=== PATIENT | male | born 1950 | race Caucasian/White ===

== ENCOUNTER → 2017-04-08 | Outpatient (CLI) | payer MEDICARE, OTHER ==
[~2017-04-08] MED LIST: ACET500; ASPI81CH PO; ASPI81EC; ATOR20; ATOR80 PO; AZOR; Azor 10-40 MG1 EACH; Azor 5-40 MG T1 EACH PO; CLON.5; CLOP75 PO; DOCU100 PO; FERR325; HYDCHL25; IRON 325 MG; KETO10 PO; LISI10; LISI20; LORA2 PO; Levitra20 MG; MAGCHL64ER; MECL25 PO; METCAR500 PO; METO100ER; METO25ER; NEBI5 PO; Nitrostat0.4 MG; OMEP20ER PO; OXYACE5T PO; PROM25 PO; Percocet 5-3251 EACH PO; RXLORA1 PO; TEMA15 PO; VITAMIN B122500 MCG PO
== END ==
LOC: PLD 08:06 → LAB SHORT 08:06
DX: D48.5 Neoplasm of uncertain behavior of skin (principal)
CPT/HCPCS: 88305

== ENCOUNTER → 2017-08-18 | Outpatient (CLI) | payer MEDICARE, OTHER ==
[2017-08-18 14:16] LABS: BASOPHILS ABSOLUTE AUTO 0.04 K/mm3 (0.00-0.23); BASOPHILS PERCENT AUTO 1 % (0-2); EOSINOPHILS PERCENT AUTO 3 % (0-6); Hemoglobin 14.5 g/dL (13.5-17.5); IMMATURE GRAN ABSOLUTE AUTO 0.02 K/mm3 (0.00-0.10); IMMATURE GRAN PERCENT AUTO 0 % (0-1); LYMPHOCYTES ABSOLUTE AUTO 1.77 K/mm3 (0.84-5.20); LYMPHOCYTES PERCENT AUTO 23 % (21-46); MONOCYTES ABSOLUTE AUTO 0.67 K/mm3 (0.16-1.47); MONOCYTES PERCENT AUTO 9 % (4-13); Mean Corpuscular HGB Conc 32.2 g/dL (31.5-36.5); Mean Corpuscular Volume 90 fL (80-100); Mean Platelet Volume 10.5 fL (9.1-12.4); NEUTROPHILS ABSOLUTE AUTO 5.13 K/mm3 (1.96-9.15); NEUTROPHILS PERCENT AUTO 65 % (41-73); Platelet Count 295 K/mm3 (150-400); RDW Standard Deviation 46.3 fL (35.1-46.3); White Blood Cell Count 7.83 K/mm3 (4.00-11.30)
[2017-08-18 14:31] LABS: Alanine Aminotransfer (ALT/SGP 57 U/L (12-78); Albumin, Blood 3.6 g/dL (3.4-5.0); Alk Phos 88 U/L (50-136); Anion Gap 8 mmol/L (6-16); Aspartate Aminotrans (AST/SGOT 34 U/L (12-37); Bilirubin, Total 0.3 mg/dL (0.1-1.0); Blood Urea Nitrogen 18 mg/dL (8-24); Bun/Creatinine Ratio 16.8 (12.0-20.0); CO2, Blood 24 mmol/L (21-32); Calcium, Blood 8.6 mg/dL (8.5-10.1); Chloride, Blood 107 mmol/L (98-108); Creatinine, Blood 1.07 mg/dL (0.60-1.20); Globulin, Blood 3.6 g/dL (2.2-4.0); Glomerular Filtration Rate >60 (60-); Glucose, Blood 116 mg/dL (70-99); Potassium, Blood 4.3 mmol/L (3.5-5.5); Sodium, Blood 139 mmol/L (136-145); Total Protein, Blood 7.2 g/dL (6.4-8.2)
== END | disposition home or self-care (01) ==
LOC: LAB SHORT 14:04 → LAB 14:04
PROVIDERS: Emergency Medicine
DX: R22.43 Localized swelling, mass and lump, lower limb, bilateral (principal)
CPT/HCPCS: 80053; 85025

== ENCOUNTER → 2018-03-08 | Outpatient (CLI) | payer MEDICARE, OTHER ==
[2018-03-08 13:35] LABS: BASOPHILS ABSOLUTE AUTO 0.05 K/mm3 (0.00-0.23); BASOPHILS PERCENT AUTO 1 % (0-2); EOSINOPHILS ABSOLUTE AUTO 0.31 K/mm3 (0.00-0.68); EOSINOPHILS PERCENT AUTO 4 % (0-6); Hematocrit 30.6 % (37.0-53.0); Hemoglobin 9.1 g/dL (13.5-17.5); IMMATURE GRAN ABSOLUTE AUTO 0.04 K/mm3 (0.00-0.10); IMMATURE GRAN PERCENT AUTO 1 % (0-1); LYMPHOCYTES ABSOLUTE AUTO 1.47 K/mm3 (0.84-5.20); LYMPHOCYTES PERCENT AUTO 17 % (21-46); MONOCYTES ABSOLUTE AUTO 0.63 K/mm3 (0.16-1.47); MONOCYTES PERCENT AUTO 7 % (4-13); Mean Corpuscular HGB 26.1 pg (26.0-34.0); Mean Corpuscular HGB Conc 29.7 g/dL (31.5-36.5); Mean Corpuscular Volume 88 fL (80-100); Mean Platelet Volume 10.7 fL (9.1-12.4); NEUTROPHILS ABSOLUTE AUTO 5.96 K/mm3 (1.96-9.15); NEUTROPHILS PERCENT AUTO 70 % (41-73); Platelet Count 373 K/mm3 (150-400); RDW Coefficient Variation 14.9 % (11.7-14.2); RDW Standard Deviation 47.6 fL (35.1-46.3); Red Blood Cell Count 3.49 M/mm3 (4.30-5.90); White Blood Cell Count 8.46 K/mm3 (4.00-11.30)
[2018-03-08 13:50] LABS: Alanine Aminotransfer (ALT/SGP 26 U/L (12-78); Albumin, Blood 3.5 g/dL (3.4-5.0); Alk Phos 79 U/L (50-136); Anion Gap 7 mmol/L (6-16); Aspartate Aminotrans (AST/SGOT 15 U/L (12-37); Bilirubin, Total 0.2 mg/dL (0.1-1.0); Blood Urea Nitrogen 15 mg/dL (8-24); Bun/Creatinine Ratio 14.4 (12.0-20.0); CO2, Blood 24 mmol/L (21-32); Calcium, Blood 8.5 mg/dL (8.5-10.1); Chloride, Blood 107 mmol/L (98-108); Creatinine, Blood 1.04 mg/dL (0.60-1.20); Globulin, Blood 3.4 g/dL (2.2-4.0); Glomerular Filtration Rate >60 (60-); Glucose, Blood 117 mg/dL (70-99); Sodium, Blood 138 mmol/L (136-145); Total Protein, Blood 6.9 g/dL (6.4-8.2)
== END ==
LOC: LAB 13:02 → LAB SHORT 13:02
PROVIDERS: Family Medicine
DX: R53.83 Other fatigue (principal); R05 Cough
CPT/HCPCS: 36415; 80053; 84443; 85025; 85651

== ENCOUNTER → 2018-09-20 | Outpatient (CLI) | payer MEDICARE, OTHER ==
[~2018-09-20] MED LIST changes: +Aspirin EC81 MG PO; +B Complex #11 EACH PO; +IRON PO; +Lipitor80 MG PO; +MAGNESIUM PO; +NITR.4SL SL; +OLME20 PO; +Pantoprazole So20 MG PO; +Plavix75 MG PO; +SILD50TA PO; +VITAMIN B-121000 MC2 PO
[2018-09-20 12:59] LABS: Stool Occult Bld Immuno 1 Negative (NEGATIVE); Stool Occult Bld Immuno 2 Negative (NEGATIVE)
== END | disposition home or self-care (01) ==
LOC: LAB SHORT 07:15 → LAB 07:15 → LAB FUT 09-17 13:55 → EDSTATUS 09-17 13:55
PROVIDERS: Internal Medicine Gastroenterology
DX: D50.9 Iron deficiency anemia, unspecified (principal); K62.5 Hemorrhage of anus and rectum
CPT/HCPCS: 82274

== ENCOUNTER 2018-10-06 07:36 | Day surgery (SDC) | payer MEDICARE, OTHER ==
[~2018-10-06] VITALS: Ht 180.3 cm; Wt 110.9 kg
[~2018-10-06 07:36] MED LIST changes: -Aspirin EC81 MG PO; -IRON PO; -Lipitor80 MG PO; -MAGNESIUM PO; -NITR.4SL SL; -OLME20 PO; -Pantoprazole So20 MG PO; -Plavix75 MG PO; -SILD50TA PO; -VITAMIN B-121000 MC2 PO
--- NOTE | 2018-10-06 08:47 | NUR ---
10/06/18 0847 Stephanie Boogie 1 MISSEDIV IN RH BY DION VALVE 1 MISSED IV IN RW BY DION 1VALVE 1 MISSED IV IN RAC BY RN VALVE 1 MISSED IV IN LH BY MAIN VALVE 1 GOOD IV IN LH BY DION PT TOW
== END 2018-10-06 09:56 | disposition home or self-care (01) ==
LOC: ORSCSDS 07:36
PROVIDERS: Internal Medicine Gastroenterology
PROC: 0DBN8ZX Excision of Sigmoid Colon, Via Natural or Artificial Opening Endoscopic, Diagnostic (ICD-10-PCS; principal; 2018-10-06 09:00)
PROC: 0DBM8ZX Excision of Descending Colon, Via Natural or Artificial Opening Endoscopic, Diagnostic (ICD-10-PCS; principal; 2018-10-06 09:00)
PROC: 0DBK8ZX Excision of Ascending Colon, Via Natural or Artificial Opening Endoscopic, Diagnostic (ICD-10-PCS; principal; 2018-10-06 09:00)
DX: Z12.11 Encounter for screening for malignant neoplasm of colon (principal); Z86.010 Personal history of colon polyps; D12.2 Benign neoplasm of ascending colon; D12.4 Benign neoplasm of descending colon; D12.5 Benign neoplasm of sigmoid colon; K57.30 Diverticulosis of large intestine without perforation or abscess without bleeding; D50.9 Iron deficiency anemia, unspecified; Z83.71 Family history of colonic polyps; K64.8 Other hemorrhoids; E66.9 Obesity, unspecified; Z68.34 Body mass index [BMI] 34.0-34.9, adult; K21.9 Gastro-esophageal reflux disease without esophagitis; Z79.01 Long term (current) use of anticoagulants; Z79.82 Long term (current) use of aspirin; Z79.899 Other long term (current) drug therapy
CPT/HCPCS: 88305; J0330; J0461; J1980; J2405; J2704; J7120

== ENCOUNTER 2018-12-10 15:28 | Observation (INO) | payer MEDICARE, OTHER ==
[~2018-12-10] VITALS: Ht 180.3 cm; Wt 111.8 kg
[2018-12-10 16:43] LABS: BASOPHILS ABSOLUTE AUTO 0.06 K/mm3 (0.00-0.23); BASOPHILS PERCENT AUTO 1 % (0-2); EOSINOPHILS ABSOLUTE AUTO 0.14 K/mm3 (0.00-0.68); EOSINOPHILS PERCENT AUTO 2 % (0-6); Hematocrit 36.9 % (37.0-53.0); Hemoglobin 11.1 g/dL (13.5-17.5); IMMATURE GRAN ABSOLUTE AUTO 0.03 K/mm3 (0.00-0.10); IMMATURE GRAN PERCENT AUTO 0 % (0-1); LYMPHOCYTES ABSOLUTE AUTO 1.65 K/mm3 (0.84-5.20); LYMPHOCYTES PERCENT AUTO 18 % (21-46); MONOCYTES ABSOLUTE AUTO 0.84 K/mm3 (0.16-1.47); MONOCYTES PERCENT AUTO 9 % (4-13); Mean Corpuscular HGB 26.6 pg (26.0-34.0); Mean Corpuscular HGB Conc 30.1 g/dL (31.5-36.5); Mean Corpuscular Volume 88 fL (80-100); NEUTROPHILS ABSOLUTE AUTO 6.37 K/mm3 (1.96-9.15); NEUTROPHILS PERCENT AUTO 70 % (41-73); RDW Coefficient Variation 14.4 % (11.7-14.2); RDW Standard Deviation 45.9 fL (35.1-46.3); Red Blood Cell Count 4.18 M/mm3 (4.30-5.90); White Blood Cell Count 9.09 K/mm3 (4.00-11.30)
[2018-12-10 17:11] LABS: Mean Platelet Volume 10.3 fL (9.1-12.4); Platelet Count 303 K/mm3 (150-400)
[2018-12-10] MEDS ORDERED: Lipitor80 MG PO (17:23)
[2018-12-10] MEDS ORDERED: NITR.4SL SL (17:23)
[2018-12-10] MEDS ORDERED: Aspirin EC81 MG PO (17:23)
[2018-12-10] MEDS ORDERED: Pantoprazole So20 MG PO (17:23)
[2018-12-10] MEDS ORDERED: OLME20 PO (17:24)
[2018-12-10] MEDS ORDERED: Plavix75 MG PO (17:24)
[2018-12-10] MEDS ORDERED: SILD50TA PO (17:25)
[2018-12-10 17:46] LABS: Alanine Aminotransfer (ALT/SGP 41 U/L (12-78); Albumin, Blood 3.5 g/dL (3.4-5.0); Albumin/Globulin Ratio 1.1 (0.8-1.8); Alk Phos 80 U/L (50-136); Anion Gap 3 mmol/L (6-16); Aspartate Aminotrans (AST/SGOT 23 U/L (12-37); Bilirubin, Total 0.2 mg/dL (0.1-1.0); Blood Urea Nitrogen 20 mg/dL (8-24); Bun/Creatinine Ratio 20.6 (12.0-20.0); CO2, Blood 24 mmol/L (21-32); Calcium, Blood 8.4 mg/dL (8.5-10.1); Chloride, Blood 109 mmol/L (98-108); Creatinine, Blood 0.97 mg/dL (0.60-1.20); Globulin, Blood 3.3 g/dL (2.2-4.0); Glomerular Filtration Rate >60 (60-); Glucose, Blood 99 mg/dL (70-99); International Normalized Ratio 1.02; Potassium, Blood 4.1 mmol/L (3.5-5.5); Prothrombin Time Results 10.8 Sec (9.7-11.5); Sodium, Blood 136 mmol/L (136-145); Total Protein, Blood 6.8 g/dL (6.4-8.2); Troponin I <0.015 ng/mL (0.000-0.040)
[2018-12-10] MEDS ORDERED: MAGNESIUM PO (18:34)
[2018-12-10] MEDS ORDERED: IRON PO (18:34)
[2018-12-10] MEDS ORDERED: VITAMIN B-121000 MC2 PO (18:35)
--- NOTE | 2018-12-11 06:40 | NUR ---
SHIFT SUMMARY RECEIVED REPORT FROM PAOLA QUACH, ED. ARRIVED TO MEDICAL FLOOR @ 1926. FAMILY AT BEDSIDE. A/O, ABLE TO MAKE NEEDS KNOWN. COOPERATIVE WITH CARE. ANSWERS QUESTIONS APPROPRIATELY. NO C/O PAIN/DISCOMFORT T/O SHIFT. NPO @ 0000. INDPENDENT IN ROOM. APPEARED TO REST MUCH OF SHIFT. VSS/AFEBRILE. NO ACUTE CHANGES NOTED OVERNIGHT. BED IN LOWEST POSITION. CALL LIGHT AND BELONGINGS WITHIN REACH. WCTM. REPORT TO WILMAN QUACH.
--- NOTE | 2018-12-11 08:20 | NUR ---
PT AWAKE DURING SHIFT REPORT. 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 PT REQUESTED TO KNOW WHEN THEY WOULD BE COMING TO GET HIM. [facility] NOTIFIED, BUT PT NOT ON SCHEDULE THEY HAVE. CARDIOLOGY CONSULT CALLED TO AKI FERNANDEZ BY [facility]. ANS REPORTED BOTH DR COHEN AND DR FERNANDEZ DOMESTIC TECHNICIAN TODAY. PT REPORTED THAT DR COHEN HAD DONE PREVIOUS STENTS AND WAS TOLD BY DR BURRELL YESTERDAY, THAT DR COHEN WOULD BE DOMESTIC TECHNICIAN TODAY. DISCUSSED WITH CHRG RN, LIANG AND NRS PRIVATE BRANCH EXCHANGE SERVICE ADVISOR KEYA. PT UPDATED. NO C/O CP. INDEPENDENT IN . FAMILY AT BS. CALL LT IN REACH.
--- NOTE | 2018-12-11 12:08 | NUR ---
0986 DR COHEN TO TO SEE PT, FAMILY AT BS. 1035 STAFF FROM [facility] HERE TO TAKE PT TO [facility]. 1205 [facility] REPORTED PT NOW GOING TO PCU.
--- NOTE | 2018-12-11 13:22 | NUR ---
ARRIVED FROM SURGERY WITH NS RUNNING INTO IV IN L ARM, REPLACED WITH ORDERED NS 500ML @ 200, STARTED ASSESSING VS PER PROTOCOL, TOLERATING WELL, CONTINUING TO MONITOR WRIST BAND, IV IRRATATING WHEN FLUSHED BUT STATES HE WOULD RATHER USE IT THEN GET A NEW ONE, CONTINUING TO MONITOR AND TREAT PRESCRIBED
--- NOTE | 2018-12-11 14:22 | NUR ---
Pt's IV is starting to infiltrate apparently. He is c/o tenderness and the insertion site has an area which is starting to be firm to palpation. IV fluids were turned off (pt has received 300 cc of 500cc ordered), and he was encouraged to drink the water in his pitcher. STates he has no problem doing that.
--- NOTE | 2018-12-11 15:49 | NUR ---
Total of 9 cc air removed from TR band. Appears to be totally deflated. Scant amount of dried blood noted around the insertion site, but no bleeding, no bruising, no swelling, no hematoma. Pt denies any numbness, tingling, or pain in his arm since arrival. Cap refill has remained 3 sec or less, with good spo2 measured on the 2nd digit of the right hand.
--- NOTE | 2018-12-11 19:10 | NUR ---
BROKE THE NEWS THAT HE WOULD LIKELY HAVE TO SPEND THE NIGHT, CALL LIGHT IN REACH, NO BLEEDING OR INFLAMATION NOTED AT SURGICAL SITE, SALINE LOCKED, ROOM AIR, IN ROOM ASSISTING WITH CARE, BSR SHARED WITH DAY SHIFT STAFF, COOPERATIVE WITH STAFF, HEART NSR, 67p, ABLE TO SELF TRANSFER TO TOILET FOR FREQUENT URINATION
--- NOTE | 2018-12-12 04:12 | NUR ---
ASSUMED CARE APPROXIMATELY 1900; PT A&O; SPOUSE AT BEDSIDE; PT ANXIOUS TO BE DISCHARGED; R WRIST ANGIO SITE, SMALL DRIED BLOOD; CAP REFILL <3 SEC; O2 SATS >90 ON SECOND DIGIT R HAND; R ARM BOARD IN PLACE; PT DENIES CHEST PAIN; NO APPARENT DISTRESS; TENDERNESS NOTED W/ FLUSHING LEFT ARM IV SITE, FLUSHES EASILY; PT REQUESTED DOOR CLOSED AND QUIET CARE THROUGH THE NIGHT; SPOUSE STAYED IN ROOM AND RECLINER CHAIR AND BLANKETS PROVIDED; PT INDEPENDENT TO BATHROOM; PT ASLEEP SEVERAL HOURS; BED IN LOWEST POSITION; CALL LIGHT IN REACH; WILL CONTINUE TO MONITOR AND ASSESS UNTIL HAND OFF TO DAY SHIFT RN.
--- NOTE | 2018-12-12 09:21 | NUR ---
DISCHARGE HOME DR MANZANO AND DR FERNANDEZ AGREED TO DISCHARGE. DISCHARGE ORDERS RECEIVED. REVIEWED THE DISCHARGE RADIAL ACCESS INSTRUCTIONS. INCLUDING S/S OF INFECTION. REVIEWED NITROGLYCERIN AND VIAGARA PRECAUTIONS. CONTINUE POT.
== END 2018-12-12 09:14 | disposition home or self-care (01) ==
LOC: ER 15:28 → MEDS 15:29 → PCU 12-11 12:09
PROVIDERS: Emergency Medicine; Physician Assistant; ADMIT Hospitalist
DX: I25.10 Atherosclerotic heart disease of native coronary artery without angina pectoris (principal); I10 Essential (primary) hypertension; K21.9 Gastro-esophageal reflux disease without esophagitis; R73.03 Prediabetes; Z95.5 Presence of coronary angioplasty implant and graft; Z79.899 Other long term (current) drug therapy; Z79.82 Long term (current) use of aspirin; Z79.02 Long term (current) use of antithrombotics/antiplatelets
CPT/HCPCS: 36415; 71046; 80053; 83036; 84484; 85025; 85610; 85730; 93005; 93010; 93458; 96372; 99152; 99285-25; C1769; C1894; C9113; G0378; J1644; J1650; J2250; J3010; J7030; J7040; Q9967

== ENCOUNTER 2019-04-18 16:25 | Emergency (ER) | payer MEDICARE, OTHER ==
[~2019-04-18] VITALS: Ht 180.3 cm; Wt 113.2 kg
[~2019-04-18 16:25] MED LIST changes: +Aspirin EC81 MG PO; +IRON PO; +Lipitor80 MG PO; +MAGNESIUM PO; +NITR.4SL SL; +OLME20 PO; +Pantoprazole So20 MG PO; +Plavix75 MG PO; +SILD50TA PO; +VITAMIN B-121000 MC2 PO
[2019-04-18 18:04] LABS: BASOPHILS ABSOLUTE AUTO 0.03 K/mm3 (0.00-0.23); BASOPHILS PERCENT AUTO 0 % (0-2); EOSINOPHILS ABSOLUTE AUTO 0.15 K/mm3 (0.00-0.68); EOSINOPHILS PERCENT AUTO 2 % (0-6); Hematocrit 34.7 % (37.0-53.0); Hemoglobin 10.7 g/dL (13.5-17.5); IMMATURE GRAN ABSOLUTE AUTO 0.03 K/mm3 (0.00-0.10); IMMATURE GRAN PERCENT AUTO 0 % (0-1); LYMPHOCYTES PERCENT AUTO 18 % (21-46); MONOCYTES ABSOLUTE AUTO 0.52 K/mm3 (0.16-1.47); MONOCYTES PERCENT AUTO 7 % (4-13); Mean Corpuscular HGB Conc 30.8 g/dL (31.5-36.5); Mean Corpuscular Volume 91 fL (80-100); Mean Platelet Volume 10.6 fL (9.1-12.4); NEUTROPHILS ABSOLUTE AUTO 5.25 K/mm3 (1.96-9.15); NEUTROPHILS PERCENT AUTO 72 % (41-73); Platelet Count 322 K/mm3 (150-400); RDW Coefficient Variation 15.8 % (11.7-14.2); RDW Standard Deviation 52.1 fL (35.1-46.3); Red Blood Cell Count 3.82 M/mm3 (4.30-5.90); White Blood Cell Count 7.28 K/mm3 (4.00-11.30)
[2019-04-18 18:35] LABS: Alanine Aminotransfer (ALT/SGP 40 U/L (12-78); Albumin, Blood 3.1 g/dL (3.4-5.0); Alk Phos 79 U/L (50-136); Anion Gap 2 mmol/L (6-16); Aspartate Aminotrans (AST/SGOT 29 U/L (12-37); Bilirubin, Total 0.2 mg/dL (0.1-1.0); Blood Urea Nitrogen 21 mg/dL (8-24); Bun/Creatinine Ratio 18.3 (12.0-20.0); CO2, Blood 31 mmol/L (21-32); Calcium, Blood 7.7 mg/dL (8.5-10.1); Chloride, Blood 110 mmol/L (98-108); Creatinine, Blood 1.15 mg/dL (0.60-1.20); Glomerular Filtration Rate >60 (60-); Glucose, Blood 177 mg/dL (70-99); Potassium, Blood 3.9 mmol/L (3.5-5.5); Sodium, Blood 143 mmol/L (136-145); Total Protein, Blood 6.1 g/dL (6.4-8.2); Troponin I <0.015 ng/mL (0.000-0.040)
== END 2019-04-18 19:22 | disposition home or self-care (01) ==
LOC: ER 16:25
PROVIDERS: Physician Assistant
DX: I48.91 Unspecified atrial fibrillation (principal); I10 Essential (primary) hypertension; I25.10 Atherosclerotic heart disease of native coronary artery without angina pectoris; K21.9 Gastro-esophageal reflux disease without esophagitis; I25.2 Old myocardial infarction; Z79.82 Long term (current) use of aspirin; Z79.899 Other long term (current) drug therapy
CPT/HCPCS: 36415; 71046; 80053; 83735; 83880; 84484; 85025; 93005; 93010; 99285-25

== ENCOUNTER 2020-03-16 15:24 | Emergency (ER) | payer MEDICARE ==
[~2020-03-16] VITALS: Ht 180.3 cm; Wt 113.4 kg
[2020-03-16] MEDS ORDERED: ELIQUIS5 MG PO (15:32)
== END 2020-03-16 16:37 | disposition home or self-care (01) ==
LOC: ER 15:24
DX: R07.81 Pleurodynia (principal); I10 Essential (primary) hypertension; I25.10 Atherosclerotic heart disease of native coronary artery without angina pectoris; I25.2 Old myocardial infarction; K21.9 Gastro-esophageal reflux disease without esophagitis; Z79.899 Other long term (current) drug therapy; Z79.01 Long term (current) use of anticoagulants; Z79.82 Long term (current) use of aspirin; Z95.5 Presence of coronary angioplasty implant and graft
CPT/HCPCS: 71101; 99283-25

== ENCOUNTER 2020-07-11 15:42 | Emergency (ER) | payer MEDICARE, OTHER ==
[~2020-07-11] VITALS: Ht 177.8 cm; Wt 113.4 kg
[~2020-07-11 15:42] MED LIST changes: +ELIQUIS5 MG PO
[2020-07-11 16:33] LABS: BASOPHILS ABSOLUTE AUTO 0.06 K/mm3 (0.00-0.23); BASOPHILS PERCENT AUTO 1 % (0-2); EOSINOPHILS ABSOLUTE AUTO 0.18 K/mm3 (0.00-0.68); EOSINOPHILS PERCENT AUTO 2 % (0-6); Hematocrit 28.5 % (37.0-53.0); Hemoglobin 8.6 g/dL (13.5-17.5); IMMATURE GRAN ABSOLUTE AUTO 0.05 K/mm3 (0.00-0.10); IMMATURE GRAN PERCENT AUTO 1 % (0-1); LYMPHOCYTES ABSOLUTE AUTO 1.67 K/mm3 (0.84-5.20); LYMPHOCYTES PERCENT AUTO 17 % (21-46); MONOCYTES ABSOLUTE AUTO 0.96 K/mm3 (0.16-1.47); MONOCYTES PERCENT AUTO 10 % (4-13); Mean Corpuscular HGB 24.6 pg (26.0-34.0); Mean Corpuscular HGB Conc 30.2 g/dL (31.5-36.5); Mean Corpuscular Volume 82 fL (80-100); Mean Platelet Volume 10.6 fL (9.1-12.4); NEUTROPHILS ABSOLUTE AUTO 7.21 K/mm3 (1.96-9.15); NEUTROPHILS PERCENT AUTO 71 % (41-73); NRBC ABSOLUTE 0.03 K/mm3 (0.00-0.02); NRBC Auto 0.3 /100 WBC (0.0-0.2); Platelet Count 371 K/mm3 (150-400); RDW Coefficient Variation 16.1 % (11.7-14.2); RDW Standard Deviation 46.6 fL (35.1-46.3); RETICULOCYTE ABSOLUTE 0.1277 M/mm3 (0.0200-0.1100); RETICULOCYTE COUNT PERCENT 3.66 % (0.50-2.50); Red Blood Cell Count 3.49 M/mm3 (4.30-5.90); White Blood Cell Count 10.13 K/mm3 (4.00-11.30)
[2020-07-11 16:52] LABS: Albumin, Blood 3.3 g/dL (3.4-5.0); Albumin/Globulin Ratio 0.9 (0.8-1.8); Bilirubin, Total 0.3 mg/dL (0.1-1.0); Bun/Creatinine Ratio 20.3 (12.0-20.0); Calcium, Blood 8.2 mg/dL (8.5-10.1); Creatinine, Blood 1.28 mg/dL (0.60-1.20); Globulin, Blood 3.5 g/dL (2.2-4.0); Potassium, Blood 5.5 mmol/L (3.5-5.5); Total Protein, Blood 6.8 g/dL (6.4-8.2)
== END 2020-07-11 20:56 | disposition home or self-care (01) ==
LOC: ER 15:42
PROVIDERS: Physician Assistant
DX: K62.5 Hemorrhage of anus and rectum (principal); D64.9 Anemia, unspecified; Z79.01 Long term (current) use of anticoagulants; Z79.82 Long term (current) use of aspirin; Z79.899 Other long term (current) drug therapy
CPT/HCPCS: 36415; 80053; 85025; 85045; 86850; 86900; 86901; 99283

== ENCOUNTER → 2021-10-16 | Outpatient (CLI) | payer MEDICARE, OTHER | END | disposition home or self-care (01) | LOC: LAB SHORT 11:08 → PLD 11:08 | DX: D48.5 Neoplasm of uncertain behavior of skin (principal) | CPT/HCPCS: 88305 ==

== ENCOUNTER 2022-01-15 13:59 | Day surgery (SDC) | payer MEDICARE, OTHER ==
[~2022-01-15] VITALS: Ht 180.3 cm; Wt 110.6 kg
[2022-01-15] MEDS ORDERED: NEBI10 (14:26)
== END 2022-01-15 16:36 | disposition home or self-care (01) ==
LOC: ORSCSDS 13:59
PROVIDERS: Internal Medicine Gastroenterology
PROC: 0DBM8ZX Excision of Descending Colon, Via Natural or Artificial Opening Endoscopic, Diagnostic (ICD-10-PCS; principal; 2022-01-15 15:15)
PROC: 0DBH8ZX Excision of Cecum, Via Natural or Artificial Opening Endoscopic, Diagnostic (ICD-10-PCS; principal; 2022-01-15 15:15)
DX: K62.5 Hemorrhage of anus and rectum (principal); D12.0 Benign neoplasm of cecum; K64.8 Other hemorrhoids; K57.30 Diverticulosis of large intestine without perforation or abscess without bleeding; Z86.010 Personal history of colon polyps; I25.10 Atherosclerotic heart disease of native coronary artery without angina pectoris; Z79.01 Long term (current) use of anticoagulants; Z79.51 Long term (current) use of inhaled steroids; Z79.899 Other long term (current) drug therapy
CPT/HCPCS: 82947; 88305; J0330; J0461; J2405; J2704; J7120

== ENCOUNTER 2022-06-12 13:06 | Inpatient (IN) | payer MEDICARE, OTHER ==
[~2022-06-12] VITALS: Ht 180.3 cm; Wt 111.8 kg
[~2022-06-12 13:06] MED LIST changes: -AMLO10 PO; -B-12500 MC2 PO; -FURO20 PO; -METF500 PO; -POTCHL20ER PO; -XARELTO20 MG PO
[2022-06-12 14:21] LABS: Albumin, Blood 2.8 g/dL (3.4-5.0); Albumin/Globulin Ratio 0.7 (0.8-1.8); Bilirubin, Total 0.6 mg/dL (0.1-1.0); Bun/Creatinine Ratio 27.7 (12.0-20.0); Calcium, Blood 7.9 mg/dL (8.5-10.1); Creatinine, Blood 1.48 mg/dL (0.60-1.20); Globulin, Blood 4.2 g/dL (2.2-4.0)
[2022-06-12 14:24] LABS: Source, Urine Clean Catch
[2022-06-12 14:42] LABS: Blood, Urine Neg (Neg); Color, Urine Yellow (P-Yellow); Glucose Qualitative, Urine Neg (Neg); Ketones, Urine Neg (Neg); Leukocyte Esterase, Urine Neg (Neg); Nitrite, Urine Neg (Neg); Protein, Urine 3+ (Neg); Urobilinogen, Urine NORM (Normal)
[2022-06-12 15:45] LABS: Bilirubin, Urine 1+ (Neg)
[2022-06-12 15:47] LABS: Amorphous Light (0-Heavy); Appearance, Urine Hazy (Clear); Hyaline Casts 0-2 /lpf (0-2); Mucus Mod (0-Heavy)
[2022-06-12 15:48] LABS: Bacteria Mod /hpf; Red Blood Cells, Urine 0-2 /hpf (0-2); Squamous Epithelial Cells Rare /hpf (Few); White Blood Cells, Urine 0-2 /hpf (0-5)
[2022-06-12 18:30] LABS: Hematocrit 46.1 % (37.0-53.0); Hemoglobin 15.5 g/dL (13.5-17.5); Mean Corpuscular HGB 29.4 pg (26.0-34.0); Mean Corpuscular HGB Conc 33.6 g/dL (31.5-36.5); Mean Corpuscular Volume 88 fL (80-100); Mean Platelet Volume 10.7 fL (9.1-12.4); Platelet Count 268 K/mm3 (150-400); RDW Coefficient Variation 14.5 % (11.7-14.2); RDW Standard Deviation 46.5 fL (35.1-46.3); Red Blood Cell Count 5.27 M/mm3 (4.30-5.90); White Blood Cell Count 7.49 K/mm3 (4.00-11.30)
[2022-06-12 18:34] LABS: IMMATURE GRAN PERCENT AUTO 1 % (0-1)
[2022-06-12 18:41] LABS: BAND PERCENT MAN 18 % (0-8); BASOPHILS PERCENT MAN 0 % (0-2); EOSINOPHILS PERCENT MAN 0 % (0-6); LYMPHOCYTES ABSOLUTE MAN 0.89 K/mm3 (0.84-5.20); LYMPHOCYTES PERCENT MAN 12 % (21-46); METAMYELOCYTE ABSOLUTE MAN 0.22 K/mm3 (0.00-0.00); METAMYELOCYTE PERCENT MAN 3 % (0-0); MONOCYTES ABSOLUTE MAN 1.57 K/mm3 (0.16-1.47); MONOCYTES PERCENT MAN 21 % (4-13); NEUTROPHILS ABSOLUTE MAN 4.79 K/mm3 (1.96-9.15); SEG NEUTROPHILS PERCENT MAN 46 % (41-73); TOTAL CELLS COUNTED 100
[2022-06-12] MEDS ORDERED: XARELTO20 MG PO (21:08)
[2022-06-12] MEDS ORDERED: OLME20 PO (21:10)
[2022-06-12] MEDS ORDERED: AMLO10 PO (21:11)
[2022-06-12] MEDS ORDERED: NEBI5 PO (21:12)
[2022-06-12] MEDS ORDERED: FURO20 PO (21:15)
[2022-06-12] MEDS ORDERED: POTCHL20ER PO ×2 (21:15)
[2022-06-12] MEDS ORDERED: B-12500 MC2 PO (21:16)
[2022-06-13 05:31] LABS: Hematocrit 43.1 % (37.0-53.0); Hemoglobin 14.5 g/dL (13.5-17.5); Mean Corpuscular HGB 29.6 pg (26.0-34.0); Mean Corpuscular HGB Conc 33.6 g/dL (31.5-36.5); Mean Corpuscular Volume 88 fL (80-100); Mean Platelet Volume 10.7 fL (9.1-12.4); Platelet Count 236 K/mm3 (150-400); RDW Coefficient Variation 14.5 % (11.7-14.2); White Blood Cell Count 4.82 K/mm3 (4.00-11.30)
[2022-06-13 06:28] LABS: Bun/Creatinine Ratio 33.9 (12.0-20.0); Calcium, Blood 8.1 mg/dL (8.5-10.1); Creatinine, Blood 1.18 mg/dL (0.60-1.20); Potassium, Blood 3.8 mmol/L (3.5-5.5)
[2022-06-13 20:46] LABS: Adenovirus F 40/41 Not Detected (NOT DETECT); Astrovirus Not Detected (NOT DETECT); Campylobacter Sp Not Detected (NOT DETECT); Cryptosporidium Not Detected (NOT DETECT); Cyclospora Cayetanensis Not Detected (NOT DETECT); E. Coli O157 Not Detected (NOT DETECT); Entamoeba Histolytica Not Detected (NOT DETECT); Enteroaggregative E. coli-EAEC Not Detected (NOT DETECT); Enteropathogenic E. coli-EPEC Not Detected (NOT DETECT); Enterotoxigenic E. coli-ETEC Not Detected (NOT DETECT); Giardia Lamblia Not Detected (NOT DETECT); Norovirus GI/GII Detected (NOT DETECT); Plesiomonas Shigelloides Not Detected (NOT DETECT); Rotavirus A Not Detected (NOT DETECT); Salmonella Sp Not Detected (NOT DETECT); Sapovirus Not Detected (NOT DETECT); Shiga Toxin-prod E. coli-STEC Not Detected (NOT DETECT); Shigella/Enteroin E. coli-EIEC Not Detected (NOT DETECT); Vibrio Cholerae Not Detected (NOT DETECT); Vibrio Sp Not Detected (NOT DETECT); Yersinia Enterocolitica Not Detected (NOT DETECT)
[2022-06-14 06:47] LABS: Bun/Creatinine Ratio 26.4 (12.0-20.0); Calcium, Blood 7.3 mg/dL (8.5-10.1); Creatinine, Blood 0.91 mg/dL (0.60-1.20); Potassium, Blood 3.4 mmol/L (3.5-5.5)
[2022-06-14] MEDS ORDERED: METF500 PO (14:49)
== END 2022-06-14 17:40 | disposition home or self-care (01) | DRG 392 ==
LOC: ER 13:06 → MEDS 17:43
PROVIDERS: Internal Medicine; Student in an Organized Health Care Education/Training Program; ADMIT Internal Medicine
PROC: 0DH67UZ Insertion of Feeding Device into Stomach, Via Natural or Artificial Opening (ICD-10-PCS; principal; 2022-06-12)
DX: K52.9 Noninfective gastroenteritis and colitis, unspecified (principal); K56.609 Unspecified intestinal obstruction, unspecified as to partial versus complete obstruction; E87.1 Hypo-osmolality and hyponatremia; N17.9 Acute kidney failure, unspecified; I25.10 Atherosclerotic heart disease of native coronary artery without angina pectoris; I10 Essential (primary) hypertension; K59.00 Constipation, unspecified; E86.9 Volume depletion, unspecified; I48.0 Paroxysmal atrial fibrillation; K21.9 Gastro-esophageal reflux disease without esophagitis; K40.90 Unilateral inguinal hernia, without obstruction or gangrene, not specified as recurrent; E11.65 Type 2 diabetes mellitus with hyperglycemia; Z79.899 Other long term (current) drug therapy; Z79.82 Long term (current) use of aspirin; Z79.02 Long term (current) use of antithrombotics/antiplatelets; I25.2 Old myocardial infarction; Z98.890 Other specified postprocedural states; Z79.01 Long term (current) use of anticoagulants; Z95.5 Presence of coronary angioplasty implant and graft
CPT/HCPCS: 36415; 74177; 74250; 80048; 80053; 81001; 82947; 83036; 83605; 83690; 85025; 85027; 87086; 87324; 87507; 93005; 93010; 96374-59; 96376; 99285-25; A9270; J1170; J1815; J7030; J7120; Q9967

== ENCOUNTER → 2022-06-12 | Outpatient (CLI) | payer MEDICARE, OTHER ==
[~2022-06-12] MED LIST changes: +AMLO10 PO; +B-12500 MC2 PO; +FURO20 PO; +METF500 PO; +NEBI10; +POTCHL20ER PO; +XARELTO20 MG PO
[2022-06-12 14:51] LABS: Hematocrit 47.2 % (37.0-53.0); Hemoglobin 15.4 g/dL (13.5-17.5); Mean Corpuscular HGB 28.4 pg (26.0-34.0); Mean Corpuscular HGB Conc 32.6 g/dL (31.5-36.5); Mean Corpuscular Volume 87 fL (80-100); Mean Platelet Volume 11.3 fL (9.1-12.4); Platelet Count 280 K/mm3 (150-400); RDW Coefficient Variation 14.4 % (11.7-14.2); RDW Standard Deviation 46.5 fL (35.1-46.3); Red Blood Cell Count 5.42 M/mm3 (4.30-5.90); White Blood Cell Count 7.09 K/mm3 (4.00-11.30)
[2022-06-12 15:15] LABS: Albumin/Globulin Ratio 0.8 (0.8-1.8); Bilirubin, Total 0.6 mg/dL (0.1-1.0); Bun/Creatinine Ratio 27.1 (12.0-20.0); Calcium, Blood 8.1 mg/dL (8.5-10.1); Creatinine, Blood 1.4 mg/dL (0.60-1.20); Globulin, Blood 3.9 g/dL (2.2-4.0); Total Protein, Blood 6.9 g/dL (6.4-8.2)
[2022-06-12 18:50] LABS: BAND PERCENT MAN 22 % (0-8); BASOPHILS PERCENT MAN 0 % (0-2); EOSINOPHILS PERCENT MAN 0 % (0-6); LYMPHOCYTES ABSOLUTE MAN 1.06 K/mm3 (0.84-5.20); LYMPHOCYTES PERCENT MAN 15 % (21-46); METAMYELOCYTE ABSOLUTE MAN 0.28 K/mm3 (0.00-0.00); METAMYELOCYTE PERCENT MAN 4 % (0-0); MONOCYTES ABSOLUTE MAN 1.63 K/mm3 (0.16-1.47); MONOCYTES PERCENT MAN 23 % (4-13); NEUTROPHILS ABSOLUTE MAN 4.11 K/mm3 (1.96-9.15); SEG NEUTROPHILS PERCENT MAN 36 % (41-73); TOTAL CELLS COUNTED 100
== END | disposition home or self-care (01) ==
LOC: LAB SHORT 13:10
PROVIDERS: Nurse Practitioner
DX: R11.14 Bilious vomiting (principal)
CPT/HCPCS: 80053; 85025

== ENCOUNTER 2022-06-16 01:18 | Inpatient (IN) | payer MEDICARE, OTHER ==
[~2022-06-16] VITALS: Ht 180.3 cm; Wt 113.1 kg
[~2022-06-16 01:18] MED LIST changes: +AMLO10 PO; +B-12500 MC2 PO; +FURO20 PO; +METF500 PO; +POTCHL20ER PO; +XARELTO20 MG PO
[2022-06-16 02:10] LABS: Hematocrit 43.3 % (37.0-53.0); Hemoglobin 14.3 g/dL (13.5-17.5); Mean Corpuscular HGB 28.7 pg (26.0-34.0); Mean Corpuscular Volume 87 fL (80-100); Mean Platelet Volume 9.6 fL (9.1-12.4); Platelet Count 293 K/mm3 (150-400); RDW Coefficient Variation 14.3 % (11.7-14.2); RDW Standard Deviation 45.8 fL (35.1-46.3); Red Blood Cell Count 4.98 M/mm3 (4.30-5.90); White Blood Cell Count 13.64 K/mm3 (4.00-11.30)
[2022-06-16 02:27] LABS: Albumin, Blood 2.6 g/dL (3.4-5.0); Albumin/Globulin Ratio 0.7 (0.8-1.8); Bilirubin, Total 0.5 mg/dL (0.1-1.0); Bun/Creatinine Ratio 17.6 (12.0-20.0); Calcium, Blood 8.5 mg/dL (8.5-10.1); Creatinine, Blood 0.97 mg/dL (0.60-1.20); Globulin, Blood 3.8 g/dL (2.2-4.0); Potassium, Blood 3.8 mmol/L (3.5-5.5); Total Protein, Blood 6.4 g/dL (6.4-8.2)
[2022-06-16 02:44] LABS: BAND PERCENT MAN 17 % (0-8); BASOPHILS PERCENT MAN 0 % (0-2); EOSINOPHILS PERCENT MAN 0 % (0-6); LYMPHOCYTES ABSOLUTE MAN 0.68 K/mm3 (0.84-5.20); LYMPHOCYTES PERCENT MAN 5 % (21-46); METAMYELOCYTE ABSOLUTE MAN 0.13 K/mm3 (0.00-0.00); METAMYELOCYTE PERCENT MAN 1 % (0-0); MONOCYTES ABSOLUTE MAN 0.27 K/mm3 (0.16-1.47); MONOCYTES PERCENT MAN 2 % (4-13); MYELOCYTE ABSOLUTE MAN 0.13 K/mm3 (0.00-0.00); MYELOCYTE PERCENT MAN 1 % (0-0); NEUTROPHILS ABSOLUTE MAN 12.41 K/mm3 (1.96-9.15); SEG NEUTROPHILS PERCENT MAN 74 % (41-73); TOTAL CELLS COUNTED 100
[2022-06-16 08:13] LABS: BASOPHILS ABSOLUTE AUTO 0.05 K/mm3 (0.00-0.23); BASOPHILS PERCENT AUTO 1 % (0-2); EOSINOPHILS ABSOLUTE AUTO 0.04 K/mm3 (0.00-0.68); EOSINOPHILS PERCENT AUTO 0 % (0-6); Hematocrit 38.7 % (37.0-53.0); Hemoglobin 12.9 g/dL (13.5-17.5); IMMATURE GRAN ABSOLUTE AUTO 0.43 K/mm3 (0.00-0.10); IMMATURE GRAN PERCENT AUTO 4 % (0-1); LYMPHOCYTES ABSOLUTE AUTO 1.19 K/mm3 (0.84-5.20); LYMPHOCYTES PERCENT AUTO 12 % (21-46); MONOCYTES PERCENT AUTO 12 % (4-13); Mean Corpuscular HGB 28.9 pg (26.0-34.0); Mean Corpuscular HGB Conc 33.3 g/dL (31.5-36.5); Mean Corpuscular Volume 87 fL (80-100); Mean Platelet Volume 9.7 fL (9.1-12.4); NEUTROPHILS ABSOLUTE AUTO 7.13 K/mm3 (1.96-9.15); NEUTROPHILS PERCENT AUTO 71 % (41-73); Platelet Count 257 K/mm3 (150-400); RDW Coefficient Variation 14.5 % (11.7-14.2); RDW Standard Deviation 46.2 fL (35.1-46.3); Red Blood Cell Count 4.47 M/mm3 (4.30-5.90); White Blood Cell Count 10.04 K/mm3 (4.00-11.30)
[2022-06-16 08:34] LABS: Albumin, Blood 2.4 g/dL (3.4-5.0); Albumin/Globulin Ratio 0.7 (0.8-1.8); Bilirubin, Total 0.6 mg/dL (0.1-1.0); Bun/Creatinine Ratio 19.1 (12.0-20.0); Calcium, Blood 8.1 mg/dL (8.5-10.1); Creatinine, Blood 0.84 mg/dL (0.60-1.20); Globulin, Blood 3.3 g/dL (2.2-4.0); Potassium, Blood 3.7 mmol/L (3.5-5.5); Total Protein, Blood 5.7 g/dL (6.4-8.2)
[2022-06-18 05:21] LABS: Hematocrit 38.7 % (37.0-53.0); Hemoglobin 12.8 g/dL (13.5-17.5); Mean Corpuscular HGB Conc 33.1 g/dL (31.5-36.5); Mean Corpuscular Volume 88 fL (80-100); Mean Platelet Volume 10.2 fL (9.1-12.4); Platelet Count 261 K/mm3 (150-400); RDW Coefficient Variation 14.3 % (11.7-14.2); RDW Standard Deviation 46.3 fL (35.1-46.3); Red Blood Cell Count 4.41 M/mm3 (4.30-5.90); White Blood Cell Count 9.79 K/mm3 (4.00-11.30)
[2022-06-18 05:39] LABS: Bun/Creatinine Ratio 12.4 (12.0-20.0); Calcium, Blood 7.5 mg/dL (8.5-10.1); Creatinine, Blood 0.81 mg/dL (0.60-1.20); Potassium, Blood 3.4 mmol/L (3.5-5.5)
[2022-06-19 05:30] LABS: Bun/Creatinine Ratio 11.2 (12.0-20.0); Calcium, Blood 7.9 mg/dL (8.5-10.1); Creatinine, Blood 0.72 mg/dL (0.60-1.20); Potassium, Blood 3.6 mmol/L (3.5-5.5)
== END 2022-06-20 12:46 | disposition home or self-care (01) | DRG 389 ==
LOC: ER 01:18 → MEDS 01:19
PROVIDERS: Internal Medicine; Student in an Organized Health Care Education/Training Program; ADMIT Student in an Organized Health Care Education/Training Program
PROC: 0DH67UZ Insertion of Feeding Device into Stomach, Via Natural or Artificial Opening (ICD-10-PCS; principal; 2022-06-16)
DX: K56.609 Unspecified intestinal obstruction, unspecified as to partial versus complete obstruction (principal); A08.11 Acute gastroenteropathy due to Norwalk agent; E87.1 Hypo-osmolality and hyponatremia; I25.10 Atherosclerotic heart disease of native coronary artery without angina pectoris; I10 Essential (primary) hypertension; E86.9 Volume depletion, unspecified; I48.0 Paroxysmal atrial fibrillation; E11.9 Type 2 diabetes mellitus without complications; K46.9 Unspecified abdominal hernia without obstruction or gangrene; K21.9 Gastro-esophageal reflux disease without esophagitis; Z79.01 Long term (current) use of anticoagulants; Z79.899 Other long term (current) drug therapy; Z79.84 Long term (current) use of oral hypoglycemic drugs; Z79.82 Long term (current) use of aspirin; Z79.02 Long term (current) use of antithrombotics/antiplatelets; I25.2 Old myocardial infarction; Z98.890 Other specified postprocedural states; Z95.5 Presence of coronary angioplasty implant and graft; Z86.718 Personal history of other venous thrombosis and embolism
CPT/HCPCS: 36415; 71045; 74018; 74177; 74250; 80048; 80053; 82947; 83690; 83735; 85025; 85027; 93005; 93010; 96374-59; 96375; 96376; 99285-25; A9270; G0378; J0360; J1815; J2405; J3010; J3370; J7030; Q9967

== ENCOUNTER → 2022-06-28 | Outpatient (CLI) | payer MEDICARE, OTHER ==
[2022-06-28 13:34] LABS: BASOPHILS ABSOLUTE AUTO 0.06 K/mm3 (0.00-0.23); BASOPHILS PERCENT AUTO 1 % (0-2); EOSINOPHILS ABSOLUTE AUTO 0.15 K/mm3 (0.00-0.68); EOSINOPHILS PERCENT AUTO 1 % (0-6); Hemoglobin 14.4 g/dL (13.5-17.5); IMMATURE GRAN ABSOLUTE AUTO 0.05 K/mm3 (0.00-0.10); IMMATURE GRAN PERCENT AUTO 1 % (0-1); LYMPHOCYTES ABSOLUTE AUTO 1.35 K/mm3 (0.84-5.20); LYMPHOCYTES PERCENT AUTO 12 % (21-46); MONOCYTES ABSOLUTE AUTO 0.87 K/mm3 (0.16-1.47); MONOCYTES PERCENT AUTO 8 % (4-13); Mean Corpuscular HGB 29.2 pg (26.0-34.0); Mean Corpuscular HGB Conc 32.7 g/dL (31.5-36.5); Mean Corpuscular Volume 89 fL (80-100); Mean Platelet Volume 10.4 fL (9.1-12.4); NEUTROPHILS PERCENT AUTO 77 % (41-73); Platelet Count 438 K/mm3 (150-400); RDW Coefficient Variation 15.1 % (11.7-14.2); RDW Standard Deviation 49.5 fL (35.1-46.3); Red Blood Cell Count 4.93 M/mm3 (4.30-5.90); White Blood Cell Count 10.98 K/mm3 (4.00-11.30)
[2022-06-28 13:58] LABS: Albumin, Blood 3.7 g/dL (3.4-5.0); Albumin/Globulin Ratio 0.9 (0.8-1.8); Bilirubin, Total 0.7 mg/dL (0.1-1.0); Bun/Creatinine Ratio 32.4 (12.0-20.0); Calcium, Blood 9.7 mg/dL (8.5-10.1); Creatinine, Blood 1.42 mg/dL (0.60-1.20); Globulin, Blood 3.9 g/dL (2.2-4.0); Potassium, Blood 4.5 mmol/L (3.5-5.5); Total Protein, Blood 7.6 g/dL (6.4-8.2)
== END | disposition home or self-care (01) ==
LOC: LAB 12:53 → LAB SHORT 12:53
PROVIDERS: Physician Assistant
DX: R53.83 Other fatigue (principal); R53.1 Weakness
CPT/HCPCS: 80053; 85025

== ENCOUNTER 2022-07-03 01:43 | Emergency (ER) | payer MEDICARE, OTHER ==
[~2022-07-03] VITALS: Ht 180.3 cm; Wt 103.4 kg
[2022-07-03 01:51] VITALS: BP 148/77
[2022-07-03 02:27] LABS: BASOPHILS ABSOLUTE AUTO 0.04 K/mm3 (0.00-0.23); BASOPHILS PERCENT AUTO 1 % (0-2); EOSINOPHILS ABSOLUTE AUTO 0.38 K/mm3 (0.00-0.68); EOSINOPHILS PERCENT AUTO 5 % (0-6); Hematocrit 41.2 % (37.0-53.0); Hemoglobin 13.7 g/dL (13.5-17.5); IMMATURE GRAN ABSOLUTE AUTO 0.01 K/mm3 (0.00-0.10); IMMATURE GRAN PERCENT AUTO 0 % (0-1); LYMPHOCYTES ABSOLUTE AUTO 1.81 K/mm3 (0.84-5.20); LYMPHOCYTES PERCENT AUTO 25 % (21-46); MONOCYTES ABSOLUTE AUTO 0.64 K/mm3 (0.16-1.47); MONOCYTES PERCENT AUTO 9 % (4-13); Mean Corpuscular HGB 29.5 pg (26.0-34.0); Mean Corpuscular HGB Conc 33.3 g/dL (31.5-36.5); Mean Corpuscular Volume 89 fL (80-100); Mean Platelet Volume 10.3 fL (9.1-12.4); NEUTROPHILS PERCENT AUTO 60 % (41-73); Platelet Count 312 K/mm3 (150-400); RDW Coefficient Variation 14.8 % (11.7-14.2); RDW Standard Deviation 47.8 fL (35.1-46.3); Red Blood Cell Count 4.65 M/mm3 (4.30-5.90); White Blood Cell Count 7.18 K/mm3 (4.00-11.30)
[2022-07-03 02:45] LABS: Albumin, Blood 3.4 g/dL (3.4-5.0); Albumin/Globulin Ratio 0.9 (0.8-1.8); Bilirubin, Total 0.5 mg/dL (0.1-1.0); Bun/Creatinine Ratio 22.2 (12.0-20.0); Calcium, Blood 8.7 mg/dL (8.5-10.1); Creatinine, Blood 0.86 mg/dL (0.60-1.20); Globulin, Blood 3.6 g/dL (2.2-4.0); Potassium, Blood 3.9 mmol/L (3.5-5.5)
== END 2022-07-03 05:28 | disposition home or self-care (01) ==
LOC: ER 01:43
PROVIDERS: Student in an Organized Health Care Education/Training Program
DX: I10 Essential (primary) hypertension (principal); R00.2 Palpitations; R53.83 Other fatigue; T38.3X5A Adverse effect of insulin and oral hypoglycemic [antidiabetic] drugs, initial encounter; Z79.899 Other long term (current) drug therapy; Z79.82 Long term (current) use of aspirin; I25.10 Atherosclerotic heart disease of native coronary artery without angina pectoris; K21.9 Gastro-esophageal reflux disease without esophagitis; I25.2 Old myocardial infarction
CPT/HCPCS: 36415; 80053; 83605; 85025; 93005; 93010; 99283-25

== ENCOUNTER 2023-01-12 21:43 | Observation (INO) | payer MEDICARE, OTHER ==
[~2023-01-12] VITALS: Ht 180.3 cm; Wt 110.7 kg
[2023-01-12 22:16] LABS: BASOPHILS ABSOLUTE AUTO 0.05 K/mm3 (0.00-0.23); BASOPHILS PERCENT AUTO 1 % (0-2); EOSINOPHILS ABSOLUTE AUTO 0.18 K/mm3 (0.00-0.68); EOSINOPHILS PERCENT AUTO 2 % (0-6); Hematocrit 46.8 % (37.0-53.0); Hemoglobin 15.4 g/dL (13.5-17.5); IMMATURE GRAN ABSOLUTE AUTO 0.04 K/mm3 (0.00-0.10); IMMATURE GRAN PERCENT AUTO 0 % (0-1); LYMPHOCYTES PERCENT AUTO 29 % (21-46); MONOCYTES ABSOLUTE AUTO 0.99 K/mm3 (0.16-1.47); MONOCYTES PERCENT AUTO 11 % (4-13); Mean Corpuscular HGB 28.2 pg (26.0-34.0); Mean Corpuscular HGB Conc 32.9 g/dL (31.5-36.5); Mean Corpuscular Volume 86 fL (80-100); Mean Platelet Volume 10.1 fL (9.1-12.4); NEUTROPHILS ABSOLUTE AUTO 5.24 K/mm3 (1.96-9.15); NEUTROPHILS PERCENT AUTO 57 % (41-73); Platelet Count 258 K/mm3 (150-400); RDW Coefficient Variation 16.1 % (11.7-14.2); Red Blood Cell Count 5.46 M/mm3 (4.30-5.90)
[2023-01-12 22:33] LABS: Albumin, Blood 3.7 g/dL (3.4-5.0); Albumin/Globulin Ratio 0.9 (0.8-1.8); Bilirubin, Total 0.2 mg/dL (0.1-1.0); Bun/Creatinine Ratio 25.4 (12.0-20.0); Calcium, Blood 8.7 mg/dL (8.5-10.1); Creatinine, Blood 1.14 mg/dL (0.60-1.20); Globulin, Blood 3.9 g/dL (2.2-4.0); Potassium, Blood 3.9 mmol/L (3.5-5.5); Total Protein, Blood 7.6 g/dL (6.4-8.2)
[2023-01-12] MEDS ORDERED: ATOR10 PO (22:45)
[2023-01-12 23:43] LABS: Magnesium, Blood 2.2 mg/dL (1.6-2.4); Phosphorus, Blood 2.6 mg/dL (2.5-4.9)
[2023-01-13 01:05] LABS: Influenza A, PCR NEGATIVE (NEGATIVE); Influenza B, PCR NEGATIVE (NEGATIVE); Resp Syncytial Virus, PCR NEGATIVE (NEGATIVE); SARS-Cov-2 (COVID-19) PCR, MMC NEGATIVE (NEGATIVE)
[2023-01-13 04:06] VITALS: BP 160/76
[2023-01-13 04:48] LABS: International Normalized Ratio 1.35; Prothrombin Time Results 13.9 Sec (9.7-11.5)
[2023-01-13 04:49] LABS: Albumin, Blood 3.6 g/dL (3.4-5.0); Anti-Xa UFH, PHA Monitoring >1.50 IU/mL; Bilirubin, Total 0.3 mg/dL (0.1-1.0); Bun/Creatinine Ratio 28.4 (12.0-20.0); Calcium, Blood 8.5 mg/dL (8.5-10.1); Creatinine, Blood 1.09 mg/dL (0.60-1.20); Globulin, Blood 3.7 g/dL (2.2-4.0); Potassium, Blood 4.2 mmol/L (3.5-5.5); Total Protein, Blood 7.3 g/dL (6.4-8.2)
[2023-01-13 05:01] LABS: CHOL/HDL RATIO 3.3; Cholesterol 144 mg/dL (50-200); HDL Cholesterol 44 mg/dL (>39); LDL/HDL RATIO 1.4; Low Density Lipoprotein Chol 62 mg/dL (0-110); Triglycerides 189 mg/dL (30-160); Very Low Density Lipoprot Chol 37 mg/dL (6-32)
--- NOTE | 2023-01-13 05:12 | NUR ---
shift summary. pt arrived on unit at 0350. aox4, pleasant, cooperative with care. independent within room, room air, tele in place running nsr with no events thus far, no complaints of pain. denied chest pain or pressure at this time. medication reconciliation complete. skin assessment unremarkable. 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 npo at this time. bed locked in lowest position. call light left within reach.
[2023-01-13 07:22] VITALS: BP 156/81
[2023-01-13] MEDS ORDERED: AREDS PO (10:05)
[2023-01-13 15:34] VITALS: BP 120/65
--- NOTE | 2023-01-13 17:15 | NUR ---
SUMMARY- PT A/OX4, CAME IN WITH CHEST PAIN. STATES HE HAS HAD "PANGS" OF CHEST PAIN THAT COME AND GO AWAY FAST. HAD 2 DAY CARDIOLYTE STRESS TEST PERFORMED, RESULTS ARE IN. CALLED DR CASIANO TO EVAL RESULTS. LIKELY FOR PT TO DISCHARGE THIS TICO.
--- NOTE | 2023-01-13 18:08 | NUR ---
PT DISCHARGED WITH DC INSTRUCTIONS. DR CASIANO CALLED AND ASKED FOR THIS RN TO NOTIFY PT THAT STRESS TEST WAS NEGATIVE AND TO FOLLOW UP WITH PCP REGAUDING ECHO THAT HASN'T YET BEEN INTREPRETED. NO CHANGE IN MEDICATIONS. DECLINED WHEELCHAIR, AMBULATED OUT TO PRIVATE CAR WITH .
== END 2023-01-13 18:05 | disposition home or self-care (01) ==
LOC: ER 21:43 → MEDS 21:44
PROVIDERS: Emergency Medicine; Family Medicine; Physician Assistant; ADMIT Internal Medicine
DX: R07.89 Other chest pain (principal); I25.10 Atherosclerotic heart disease of native coronary artery without angina pectoris; Z95.5 Presence of coronary angioplasty implant and graft; I48.0 Paroxysmal atrial fibrillation; E11.9 Type 2 diabetes mellitus without complications; K21.9 Gastro-esophageal reflux disease without esophagitis; Z79.01 Long term (current) use of anticoagulants; Z20.822 Contact with and (suspected) exposure to COVID-19; I10 Essential (primary) hypertension; E78.5 Hyperlipidemia, unspecified
CPT/HCPCS: 0241U; 36415; 71046; 78452; 80053; 80061; 82947; 83036; 83690; 83735; 83880; 84100; 84443; 84484; 85025; 85520; 85610; 85730; 93005; 93010; 93017; 96374; 96375; 99285-25; A9270; A9500; C8929; C9113; G0378; J1885; J1940; J2785; Q9957

== ENCOUNTER 2023-05-08 13:39 | Inpatient (IN) | payer MEDICARE, OTHER ==
[~2023-05-08] VITALS: Ht 180.3 cm; Wt 112.5 kg
[~2023-05-08 13:39] MED LIST changes: +AREDS PO; +ATOR10 PO; +PANT20 PO; -Pantoprazole So20 MG PO
[2023-05-08 14:06] LABS: BASOPHILS ABSOLUTE AUTO 0.04 K/mm3 (0.00-0.23); BASOPHILS PERCENT AUTO 0 % (0-2); EOSINOPHILS ABSOLUTE AUTO 0.05 K/mm3 (0.00-0.68); EOSINOPHILS PERCENT AUTO 0 % (0-6); Hematocrit 24.6 % (37.0-53.0); Hemoglobin 7.5 g/dL (13.5-17.5); IMMATURE GRAN ABSOLUTE AUTO 0.06 K/mm3 (0.00-0.10); IMMATURE GRAN PERCENT AUTO 1 % (0-1); LYMPHOCYTES ABSOLUTE AUTO 1.26 K/mm3 (0.84-5.20); LYMPHOCYTES PERCENT AUTO 11 % (21-46); MONOCYTES ABSOLUTE AUTO 0.83 K/mm3 (0.16-1.47); MONOCYTES PERCENT AUTO 7 % (4-13); Mean Corpuscular HGB 27.1 pg (26.0-34.0); Mean Corpuscular HGB Conc 30.5 g/dL (31.5-36.5); Mean Corpuscular Volume 89 fL (80-100); Mean Platelet Volume 9.8 fL (9.1-12.4); NEUTROPHILS ABSOLUTE AUTO 9.25 K/mm3 (1.96-9.15); NEUTROPHILS PERCENT AUTO 81 % (41-73); NRBC ABSOLUTE 0.02 K/mm3 (0.00-0.02); NRBC Auto 0.2 /100 WBC (0.0-0.2); Platelet Count 359 K/mm3 (150-400); RDW Standard Deviation 45.1 fL (35.1-46.3); Red Blood Cell Count 2.77 M/mm3 (4.30-5.90); White Blood Cell Count 11.49 K/mm3 (4.00-11.30)
[2023-05-08 14:17] LABS: Albumin, Blood 3.5 g/dL (3.4-5.0); Bilirubin, Total 0.2 mg/dL (0.1-1.0); Bun/Creatinine Ratio 25.4 (12.0-20.0); Calcium, Blood 8.6 mg/dL (8.5-10.1); Creatinine, Blood 1.38 mg/dL (0.60-1.20); Globulin, Blood 3.5 g/dL (2.2-4.0); Potassium, Blood 4.2 mmol/L (3.5-5.5)
[2023-05-08] MEDS ORDERED: DOXY100 PO (15:44)
[2023-05-08] MEDS ORDERED: AMOCLA875 PO (15:44)
[2023-05-08] MEDS ORDERED: OxyCODONE HCL 5 MG TAB PO PRN (15:50)
[2023-05-08] MEDS ORDERED: TraZODone HCl 50 MG Tab PO PRN (15:50)
[2023-05-08] MEDS ORDERED: Magnesium Hydroxide Conc 10 ML UDC PO PRN (15:55)
[2023-05-08] MEDS ORDERED: FLU VACC QS2023-24(6MOS UP)/PF 60 MCG/0.5 ML SYRINGE IM SCH (15:55)
[2023-05-08] MEDS ORDERED: Bisacodyl 10 MG Supp PR PRN (15:55)
[2023-05-08] MEDS ORDERED: Acetaminophen 650 MG Supp PR PRN (15:55)
[2023-05-08] MEDS ORDERED: Ondansetron 4 MG TAB PO PRN (15:55)
[2023-05-08] MEDS ORDERED: NS 1,000 ML IV SCH (16:00)
[2023-05-08] MEDS ORDERED: Pantoprazole Sodium 40 MG Injection IV SCH (16:30)
[2023-05-08] MEDS ORDERED: NS 1,000 ML IV ONE (16:35)
[2023-05-08] MEDS ORDERED: Acetaminophen 325 MG TABLET PO PRN (17:30)
[2023-05-08] MEDS ORDERED: Sod Phosphate/Sod Biphosphate 132 ML BTL PR ONE ×3 (17:30→17:55)
[2023-05-08] MEDS ORDERED: Polyethylene Glycol 3350 17 gm PO PRN (17:30)
[2023-05-08 18:25] VITALS: BP 119/63
[2023-05-08] MEDS ORDERED: AMLO10 PO (18:34)
[2023-05-08] MEDS ORDERED: TAMS.4ER PO (18:35)
[2023-05-08] MEDS ORDERED: NS 250 ML IV PRN (19:00)
--- NOTE | 2023-05-08 19:03 | NUR ---
PATIENT ADMIT TO PCU AT 1820. ABLE TO STAND AND TRANSFER. DENIES NUMBNESS/TINGLING. BILATERAL HEARING AIDS IN PLACE WELL GLASSES. IND AT BASELINE. MOVING ALL EXTREMITIES WNL. TELE SHOWING SR WITH HR 70'S. SBP 110'S. DENIES CHEST PAIN/PRESSURE/PALPITATIONS. NO EDEMA NOTED. BLOOD TRASNFUSION IN PROGRESS UPON ADMIT. ON ROOM AIR SATING ABOVE 95%. DENIES SOB/COUGH. EVEN AND UNLABORED RESPIRATIONS. LUNGS SOUNDING CLEAR AND DIM IN BASES. BOWEL TONES PRESENT. PATIENT REPORTS LAST BOWEL MOVMENT WAS YESTERDAY WHICH HAD BRIGHT RED BLOOD. NO BLOOD NOTED TODAY. DR. LITTLE CONSULT IN PLACE AND PLAN FOR NPO AT MIDNIGHT WITH SURGERY IN AM. NO SWALLOWING ISSUES NOTED. PATIENT ABLE TO EAT DINNER UPON ADMIT. REPORTS TAKING FLOW MAX AT HOME. SKIN OVERALL C/D/I. NO WOUNDS NOTED. CALL LIGHT IN REACH. THIS RN EDUCATED ON FALL PREVENTION. MED REC COMPLETED WITH PATIENT HOME LIST. RUPA AT BEDSIDE AND UPDATED ON PLAN OF CARE.
[2023-05-08 19:51] VITALS: BP 103/52
[2023-05-08 20:15] VITALS: BP 105/54
--- NOTE | 2023-05-08 20:25 | NUR ---
ASSUME CARE; PT CURRENTLY GETTING SECOND BAG OF 1UPRBC, PT HAS BEEN ALERT AND ORIENTED X4, PLEASANT AND COOPERATIVE ABLE TO MAKE NEEDS KNOWN. AMBULATING INDEPENDENTLY TO THE BATHROOM VITALS STABLE HRR SR 70'S, SBP 100-110'S, SATS ABOVE 95% ON RA, AFEBRILE. IN THE ROOMA T THIS TIME, AWARE OF THE PLAN OF CARE. PT TO BE NPO AFTER MIDNIGHT PT WAS EDUCATED. FOR HEMORRHOIDECTOMY IN AM. NS TO RUN AT 100MLS/HR X1 BAG. NO REPORTED BM OR RECTAL BLEED AT THIS TIME. PT IN BED RESTING WITH CALL LIGHTS IN REACH WILL CONTINUE TO MONITOR
[2023-05-08 20:30] VITALS: BP 99/54
[2023-05-08] MEDS ORDERED: Famotidine 20 MG Tab PO SCH (21:00)
[2023-05-08 22:38] VITALS: BP 110/54
[2023-05-09] VITALS (17 sets, daily range): BP systolic 108–137; BP diastolic 53–107
[2023-05-09 03:42] LABS: Hematocrit 28.1 % (37.0-53.0); Hemoglobin 8.7 g/dL (13.5-17.5); Mean Corpuscular HGB 27.1 pg (26.0-34.0); Mean Corpuscular Volume 88 fL (80-100); Mean Platelet Volume 9.9 fL (9.1-12.4); NRBC ABSOLUTE 0.02 K/mm3 (0.00-0.02); NRBC Auto 0.2 /100 WBC (0.0-0.2); Platelet Count 314 K/mm3 (150-400); RDW Coefficient Variation 14.3 % (11.7-14.2); Red Blood Cell Count 3.21 M/mm3 (4.30-5.90); White Blood Cell Count 9.92 K/mm3 (4.00-11.30)
[2023-05-09 04:11] LABS: Alanine Aminotransfer (ALT/SGP 22 U/L (12-78); Albumin, Blood 3.1 g/dL (3.4-5.0); Alk Phos 57 U/L (50-136); Anion Gap Unable to Calculate mmol/L (6-16); Aspartate Aminotrans (AST/SGOT 24 U/L (12-37); Bilirubin, Total 0.2 mg/dL (0.1-1.0); Blood Urea Nitrogen 29 mg/dL (8-24); Bun/Creatinine Ratio 22.5 (12.0-20.0); CO2, Blood 28 mmol/L (21-32); Calcium, Blood 8.3 mg/dL (8.5-10.1); Chloride, Blood 112 mmol/L (98-108); Creatinine, Blood 1.29 mg/dL (0.60-1.20); Glomerular Filtration Rate 59 (60-); Glucose, Blood 99 mg/dL (70-99); Potassium, Blood 4.7 mmol/L (3.5-5.5); Sodium, Blood 139 mmol/L (136-145); Total Protein, Blood 6.1 g/dL (6.4-8.2)
--- NOTE | 2023-05-09 05:35 | NUR ---
PT SUMMARY; NO ACUTE CHANGE FOR THE SHIFT, VITALS HAS BENE STABLE. 2U PRBC WAS TRANSFUSED HGB WENT UP TO 8.7, NO REPORTED BLOODY STOOLS OR RECTAL BLEEDING FOR THE SHIFT. PT HAS BEEN AMBULATING TO THE BATHROOM SBA, USES URINAL AT THE BEDSIDE MOST OF THE NIGHT. STAYED IN THE ROOM T/OT AWARE OF THE PLAN. PT KEPT NPO SINCE MIDNIGT FOR POSS. HEMORROIDECTOMY TODYA 05/09/23. PT RESTED WELL IN BED, HAS BEEN CALLING APPROPRIATELY DENIES CHEST PAIN/PRESSURE OR DISCOMFORT, PT REFUSES TO PLACE SCD'S BACK ON HAD IT ON AT FOR COUPLES OF HOURS AT THE BEGINNING OF THE SHIFT. CALL LIGHTS IN REACH WILL REPORT TO ONCOMING SHIFT
--- NOTE | 2023-05-09 07:18 | NUR ---
ASSUMED CARE: PT AWAKE, LOOKING AT PHONE. NSR AT 79 ON TELE AT THIS TIME. NIGHT RN CONFIRMS NPO SINCE MN. NO ACUTE NEEDS OR CONCERNS AT THIS TIME.
[2023-05-09] MEDS ORDERED: propofoL 20 ML IV ONE (07:48)
[2023-05-09] MEDS ORDERED: Midazolam HCl 1MG / ML 2ML Vial ONE (07:48)
[2023-05-09] MEDS ORDERED: FentaNYL Citrate 50 MCG/ML 2 ML Injection ONE (07:48)
[2023-05-09] MEDS ORDERED: Sod Phosphate/Sod Biphosphate 132 ML BTL PR ONE (08:30)
--- NOTE | 2023-05-09 08:50 | NUR ---
PT TAKEN TO DAY SURGERY VIA BED BY STAFF
[2023-05-09] MEDS ORDERED: Metoprolol Succinate 25 MG TABCR PO SCH ×2 (09:00)
[2023-05-09] MEDS ORDERED: Calcium Polycarbophil 625 MG Tab PO SCH (09:00)
[2023-05-09] MEDS ORDERED: Bupivacaine 0.5% HCl 5 MG/ML 30MLVIAL ONE (09:08)
[2023-05-09] MEDS ORDERED: Morphine Sulfate 4 MG/1 ML Injection IV PRN (09:10)
[2023-05-09] MEDS ORDERED: FentaNYL Citrate 50 MCG/ML 2 ML Injection IV PRN ×2 (09:10→09:15)
[2023-05-09] MEDS ORDERED: Labetalol HCL 5 MG/ML 4ML Injection (Single Dose) IV PRN (09:10)
[2023-05-09] MEDS ORDERED: Metoclopramide HCl 5MG / ML 2ML Vial IV PRN (09:10)
[2023-05-09] MEDS ORDERED: Dexamethasone Sod Phos 10 MG/ML 1ML VIAL ONE (09:22)
[2023-05-09] MEDS ORDERED: Ketorolac Tromethamine 30mg Vial ONE (09:22)
[2023-05-09] MEDS ORDERED: Ondansetron HCl 2 MG / ML 2ML Vial ONE (09:22)
--- NOTE | 2023-05-09 09:35 | NUR ---
05/09/23 0935 Socorro Gonzalez NO ANTIBIOTICS ORDERED PER .
--- NOTE | 2023-05-09 10:57 | NUR ---
PT RETURNED FROM SURGERY. GAUZE IN PLACE BETWEEN GLUTEAL FOLDS. MINIMAL BLEEDING AT THIS TIME. PT DENIES PAIN AND HAS BEEN EDUCATED TO CALL FOR PAIN MEDS WHEN HIS PAIN GETS TO 3/4. FAMILY AWARE THAT DR LITTLE STATES SHE WILL BE BACK LATER TODAY TO GIVE INSTRUCTIONS TO PT. CALL LIGHT IN REACH. DENIES NEEDS AT THIS TIME.
--- NOTE | 2023-05-09 12:57 | NUR ---
DR LITTLE CAME TO SEE PT AND GAVE EDUCATION REGARDING BOWEL REGIMEN. STATED SHE WOULD DISCUSS RECOMMENDATIONS WITH DR FIGUEROA FOR DISCHARGE.
[2023-05-09] MEDS ORDERED: MULVITA PO (13:58)
[2023-05-09] MEDS ORDERED: POLY500 PO (13:59)
[2023-05-09] MEDS ORDERED: DULCOLAX400 MG/5 M PO (14:00)
[2023-05-09] MEDS ORDERED: ONDA4 PO (14:00)
[2023-05-09] MEDS ORDERED: MIRALAX17 GM PO (14:01)
[2023-05-09] MEDS ORDERED: OXYC5 PO (14:01)
--- NOTE | 2023-05-09 16:00 | NUR ---
DISCHARGE: PT'S AND DAUGHTER AT BEDSIDE FOR DISCHARGE INFORMATION. EDUCATED ON SITZ BATHS THREE TIMES A DAY. EDUCATED REGARDING WHEN TO TAKE PAIN MEDICATIONS. PT AWARE OF FOLLOW UP APPOINTMENTS AND NEW MED REGIMEN. DENIES OTHER NEEDS OR CONCERNS. ESCORTED OUT VIA WHEEL CHAIR BY HOSPITAL STAFF. IV CHANCE'Sarah NIXON.
== END 2023-05-09 16:01 | disposition home or self-care (01) | DRG 348 ==
LOC: ER 13:39 → PCU 15:50
PROVIDERS: Physician Assistant; Surgery; ADMIT Hospitalist
PROC: 30233N1 Transfusion of Nonautologous Red Blood Cells into Peripheral Vein, Percutaneous Approach (ICD-10-PCS; 2023-05-08)
PROC: 06BY0ZC Excision of Hemorrhoidal Plexus, Open Approach (ICD-10-PCS; principal; 2023-05-09 07:30)
DX: K64.1 Second degree hemorrhoids (principal); D62 Acute posthemorrhagic anemia; K92.1 Melena; N17.9 Acute kidney failure, unspecified; E78.5 Hyperlipidemia, unspecified; K21.9 Gastro-esophageal reflux disease without esophagitis; I12.9 Hypertensive chronic kidney disease with stage 1 through stage 4 chronic kidney disease, or unspecified chronic kidney disease; N18.9 Chronic kidney disease, unspecified; I25.10 Atherosclerotic heart disease of native coronary artery without angina pectoris; I48.0 Paroxysmal atrial fibrillation; K64.4 Residual hemorrhoidal skin tags; Z95.5 Presence of coronary angioplasty implant and graft; Z79.01 Long term (current) use of anticoagulants; Z86.010 Personal history of colon polyps; Z87.19 Personal history of other diseases of the digestive system; Z79.82 Long term (current) use of aspirin
CPT/HCPCS: 36415; 36430; 80048; 80053; 85025; 85027; 85045; 86850; 86900; 86901; 86923; 88304; 94762; 96374; 99285-25; A9270; C9113; J1100; J1885; J2250; J2405; J2704; J3010; J7030; J7050; P9016

== ENCOUNTER 2023-05-11 20:48 | Emergency (ER) | payer MEDICARE, OTHER ==
[~2023-05-11] VITALS: Ht 180.3 cm; Wt 111.1 kg
[~2023-05-11 20:48] MED LIST changes: +AMOCLA875 PO; +DOXY100 PO; +DULCOLAX400 MG/5 M PO; +MIRALAX17 GM PO; +MULVITA PO; +ONDA4 PO; +OXYC5 PO; +POLY500 PO; +TAMS.4ER PO
[2023-05-11 21:11] LABS: BASOPHILS ABSOLUTE AUTO 0.04 K/mm3 (0.00-0.23); BASOPHILS PERCENT AUTO 0 % (0-2); EOSINOPHILS ABSOLUTE AUTO 0.24 K/mm3 (0.00-0.68); EOSINOPHILS PERCENT AUTO 2 % (0-6); Hematocrit 27.6 % (37.0-53.0); Hemoglobin 8.3 g/dL (13.5-17.5); IMMATURE GRAN ABSOLUTE AUTO 0.06 K/mm3 (0.00-0.10); IMMATURE GRAN PERCENT AUTO 0 % (0-1); LYMPHOCYTES ABSOLUTE AUTO 1.43 K/mm3 (0.84-5.20); LYMPHOCYTES PERCENT AUTO 11 % (21-46); MONOCYTES ABSOLUTE AUTO 1.21 K/mm3 (0.16-1.47); MONOCYTES PERCENT AUTO 9 % (4-13); Mean Corpuscular HGB 26.6 pg (26.0-34.0); Mean Corpuscular HGB Conc 30.1 g/dL (31.5-36.5); Mean Corpuscular Volume 89 fL (80-100); Mean Platelet Volume 9.8 fL (9.1-12.4); NEUTROPHILS ABSOLUTE AUTO 10.46 K/mm3 (1.96-9.15); NEUTROPHILS PERCENT AUTO 78 % (41-73); Platelet Count 314 K/mm3 (150-400); RDW Coefficient Variation 14.5 % (11.7-14.2); RDW Standard Deviation 46.8 fL (35.1-46.3); Red Blood Cell Count 3.12 M/mm3 (4.30-5.90); White Blood Cell Count 13.44 K/mm3 (4.00-11.30)
[2023-05-11 21:31] LABS: Albumin/Globulin Ratio 0.9 (0.8-1.8); Bilirubin, Total 0.3 mg/dL (0.1-1.0); Bun/Creatinine Ratio 21.8 (12.0-20.0); Calcium, Blood 7.9 mg/dL (8.5-10.1); Creatinine, Blood 1.47 mg/dL (0.60-1.20); Globulin, Blood 3.2 g/dL (2.2-4.0); Total Protein, Blood 6.2 g/dL (6.4-8.2)
[2023-05-12 00:35] LABS: Hemoglobin 7.9 g/dL (13.5-17.5)
[2023-05-12] MEDS ORDERED: HYDCOR2.5C PR (01:51)
[2023-05-12 02:00] VITALS: BP 137/58
== END 2023-05-12 02:09 | disposition home or self-care (01) ==
LOC: ER 20:48
PROVIDERS: Emergency Medicine
DX: K64.9 Unspecified hemorrhoids (principal); I10 Essential (primary) hypertension; I25.10 Atherosclerotic heart disease of native coronary artery without angina pectoris; K21.9 Gastro-esophageal reflux disease without esophagitis; I25.2 Old myocardial infarction; Z79.01 Long term (current) use of anticoagulants; Z79.82 Long term (current) use of aspirin; Z79.899 Other long term (current) drug therapy
CPT/HCPCS: 80053; 85014; 85018; 85025; 86850; 86900; 86901; 93005; 93010; 99284-25

== ENCOUNTER → 2023-05-16 | Outpatient (CLI) | payer MEDICARE, OTHER ==
[~2023-05-16] MED LIST changes: +HYDCOR2.5C PR
[2023-05-16 16:11] LABS: Appearance, Urine Clear (Clear); Bilirubin, Urine Neg (Neg); Blood, Urine Neg (Neg); Glucose Qualitative, Urine Neg (Neg); Ketones, Urine Neg (Neg); Leukocyte Esterase, Urine Neg (Neg); Nitrite, Urine Neg (Neg); Protein, Urine Neg (Neg); Specific Gravity, Urine 1.015 (1.003-1.022); Urobilinogen, Urine NORM (Normal)
[2023-05-16 16:17] LABS: Color, Urine Pale Yellow (P-Yellow)
[2023-05-16 16:27] LABS: Albumin, Blood 3.4 g/dL (3.4-5.0); Albumin/Globulin Ratio 0.9 (0.8-1.8); Bilirubin, Total 0.3 mg/dL (0.1-1.0); Bun/Creatinine Ratio 23.6 (12.0-20.0); Calcium, Blood 8.7 mg/dL (8.5-10.1); Creatinine, Blood 1.1 mg/dL (0.60-1.20); Globulin, Blood 3.8 g/dL (2.2-4.0); Potassium, Blood 4.8 mmol/L (3.5-5.5); Total Protein, Blood 7.2 g/dL (6.4-8.2)
== END ==
LOC: LAB SHORT 14:30
PROVIDERS: Student in an Organized Health Care Education/Training Program
DX: N41.0 Acute prostatitis (principal); R30.9 Painful micturition, unspecified
CPT/HCPCS: 80053; 81003; 87040

== ENCOUNTER 2023-10-15 21:37 | Emergency (ER) | payer MEDICARE, OTHER ==
[~2023-10-15] VITALS: Ht 180.3 cm; Wt 113.4 kg
[2023-10-15 22:31] LABS: Source, Urine Clean Catch
[2023-10-15 22:34] LABS: Appearance, Urine Clear (Clear); Bilirubin, Urine Neg (Neg); Blood, Urine Neg (Neg); Color, Urine Yellow (P-Yellow); Glucose Qualitative, Urine Neg (Neg); Ketones, Urine Neg (Neg); Leukocyte Esterase, Urine Neg (Neg); Nitrite, Urine Neg (Neg); Protein, Urine 2+ (Neg); Urobilinogen, Urine NORM (Normal)
[2023-10-15 22:36] LABS: BASOPHILS ABSOLUTE AUTO 0.04 K/mm3 (0.00-0.23); BASOPHILS PERCENT AUTO 0 % (0-2); EOSINOPHILS ABSOLUTE AUTO 0.15 K/mm3 (0.00-0.68); EOSINOPHILS PERCENT AUTO 1 % (0-6); Hematocrit 48.9 % (37.0-53.0); Hemoglobin 15.5 g/dL (13.5-17.5); IMMATURE GRAN ABSOLUTE AUTO 0.05 K/mm3 (0.00-0.10); IMMATURE GRAN PERCENT AUTO 0 % (0-1); LYMPHOCYTES ABSOLUTE AUTO 1.52 K/mm3 (0.84-5.20); LYMPHOCYTES PERCENT AUTO 11 % (21-46); MONOCYTES PERCENT AUTO 10 % (4-13); Mean Corpuscular HGB 27.3 pg (26.0-34.0); Mean Corpuscular HGB Conc 31.7 g/dL (31.5-36.5); Mean Corpuscular Volume 86 fL (80-100); Mean Platelet Volume 10.4 fL (9.1-12.4); NEUTROPHILS ABSOLUTE AUTO 11.15 K/mm3 (1.96-9.15); NEUTROPHILS PERCENT AUTO 78 % (41-73); Platelet Count 225 K/mm3 (150-400); RDW Coefficient Variation 18.1 % (11.7-14.2); RDW Standard Deviation 57.9 fL (35.1-46.3); Red Blood Cell Count 5.67 M/mm3 (4.30-5.90); White Blood Cell Count 14.31 K/mm3 (4.00-11.30)
[2023-10-15 22:52] LABS: Bacteria Few /hpf; Red Blood Cells, Urine 0-2 /hpf (0-2); Squamous Epithelial Cells Few /hpf (Few); White Blood Cells, Urine 0-2 /hpf (0-5)
[2023-10-15 22:55] LABS: Albumin, Blood 3.4 g/dL (3.4-5.0); Albumin/Globulin Ratio 0.8 (0.8-1.8); Bilirubin, Total 0.4 mg/dL (0.1-1.0); Bun/Creatinine Ratio 20.7 (12.0-20.0); Calcium, Blood 8.2 mg/dL (8.5-10.1); Creatinine, Blood 1.11 mg/dL (0.60-1.20); Potassium, Blood 4.4 mmol/L (3.5-5.5); Total Protein, Blood 7.4 g/dL (6.4-8.2)
[2023-10-15] MEDS ORDERED: Morphine Sulfate 4 MG/1 ML Injection IV ONE (23:10)
[2023-10-16] MEDS ORDERED: Amoxicillin/Clavulanate K 875 MG Tab PO ONE (00:45)
[2023-10-16] MEDS ORDERED: AMOCLA875 PO (00:50)
[2023-10-16] MEDS ORDERED: Morphine Sulfat15 MG PO (00:51)
[2023-10-16] MEDS ORDERED: ONDA4ODT MM (00:51)
[2023-10-16 01:06] VITALS: BP 144/69
== END 2023-10-16 01:06 | disposition home or self-care (01) ==
LOC: ER 21:37
PROVIDERS: Physician Assistant
DX: K57.32 Diverticulitis of large intestine without perforation or abscess without bleeding (principal); Z79.899 Other long term (current) drug therapy; Z79.82 Long term (current) use of aspirin; I10 Essential (primary) hypertension; I25.10 Atherosclerotic heart disease of native coronary artery without angina pectoris; I25.2 Old myocardial infarction
CPT/HCPCS: 74177; 80053; 81001; 85025; 96374-59; 99284-25; A9270; J2270; Q9967

== ENCOUNTER 2024-10-14 11:56 | Emergency (ER) | payer MEDICARE, OTHER ==
[~2024-10-14] VITALS: Ht 180.3 cm; Wt 104.3 kg
[~2024-10-14 11:56] MED LIST changes: +Morphine Sulfat15 MG PO; +ONDA4ODT MM
[2024-10-14] MEDS ORDERED: Ondansetron HCl 2 MG / ML 2ML Vial IV PRN (12:25)
[2024-10-14 12:36] LABS: BASOPHILS ABSOLUTE AUTO 0.03 K/mm3 (0.00-0.23); BASOPHILS PERCENT AUTO 0 % (0-2); EOSINOPHILS ABSOLUTE AUTO 0.08 K/mm3 (0.00-0.68); EOSINOPHILS PERCENT AUTO 1 % (0-6); Hematocrit 52.0 % (37.0-53.0); Hemoglobin 17.4 g/dL (13.5-17.5); IMMATURE GRAN ABSOLUTE AUTO 0.03 K/mm3 (0.00-0.10); IMMATURE GRAN PERCENT AUTO 0 % (0-1); LYMPHOCYTES ABSOLUTE AUTO 1.45 K/mm3 (0.84-5.20); LYMPHOCYTES PERCENT AUTO 16 % (21-46); MONOCYTES ABSOLUTE AUTO 0.55 K/mm3 (0.16-1.47); MONOCYTES PERCENT AUTO 6 % (4-13); Mean Corpuscular HGB Conc 33.5 g/dL (31.5-36.5); Mean Corpuscular Volume 90 fL (80-100); NEUTROPHILS ABSOLUTE AUTO 6.77 K/mm3 (1.96-9.15); NEUTROPHILS PERCENT AUTO 76 % (41-73); NRBC ABSOLUTE 0.00 K/mm3 (0.00-0.02); NRBC Auto 0.0 /100 WBC (0.0-0.2); Platelet Count 205 K/mm3 (150-400); RDW Coefficient Variation 13.9 % (11.7-14.2); RDW Standard Deviation 46.2 fL (35.1-46.3)
[2024-10-14 13:14] LABS: Alanine Aminotransfer (ALT/SGP 40.0 U/L (12-78); Albumin, Blood 3.6 g/dL (3.4-5.0); Albumin/Globulin Ratio 0.9 (0.8-1.8); Anion Gap 7.0 mmol/L (3-11); Aspartate Aminotrans (AST/SGOT 25.0 U/L (12-37); Bilirubin, Total 0.5 mg/dL (0.1-1.0); Blood Urea Nitrogen 16.0 mg/dL (8-24); CO2, Blood 30.0 mmol/L (21-32); Calcium, Blood 9.0 mg/dL (8.5-10.1); Chloride, Blood 102.0 mmol/L (98-108); Creatinine, Blood 0.99 mg/dL (0.60-1.20); Globulin, Blood 4.2 g/dL (2.2-4.0); Glucose, Blood 114.0 mg/dL (70-99); Potassium, Blood 4.2 mmol/L (3.5-5.5); Sodium, Blood 135.0 mmol/L (136-145); Total Protein, Blood 7.8 g/dL (6.4-8.2)
[2024-10-14 13:37] LABS: Influenza A, PCR NEGATIVE (NEGATIVE); Influenza B, PCR NEGATIVE (NEGATIVE); Resp Syncytial Virus, PCR NEGATIVE (NEGATIVE); SARS-Cov-2 (COVID-19) PCR, MMC NEGATIVE (NEGATIVE)
[2024-10-14 14:45] VITALS: BP 131/80
== END 2024-10-14 14:55 | disposition home or self-care (01) ==
LOC: ER 11:56
PROVIDERS: Physician Assistant; Student in an Organized Health Care Education/Training Program
DX: I95.1 Orthostatic hypotension (principal); R42 Dizziness and giddiness; K21.9 Gastro-esophageal reflux disease without esophagitis; I25.2 Old myocardial infarction; Z79.82 Long term (current) use of aspirin; Z79.899 Other long term (current) drug therapy
CPT/HCPCS: 71046; 80053; 83690; 84484; 85025; 87637; 93005; 93010; 99284-25; A9270